=== PATIENT | female | born 1975 | race Caucasian/White ===

== ENCOUNTER 2017-05-10 14:32 | Emergency (ER) | payer OTHER ==
[~2017-05-10] VITALS: Ht 165.1 cm; Wt 110.0 kg
[2017-05-10 14:48] VITALS: TEMP 36.9; Ht 165.1 cm; Wt 110.0 kg
[2017-05-10] MEDS ORDERED: ACETAMINOPHEN 500 MG TAB PO STA (16:11)
[2017-05-10] MEDS ORDERED: BND25 PO (16:59)
[2017-05-10] MEDS ORDERED: DICL75TA2 PO (16:59)
[2017-05-10] MEDS ORDERED: PRAZ1CAP10 PO (16:59)
[2017-05-10] MEDS ORDERED: ALBU18002 INH (16:59)
[2017-05-10] MEDS ORDERED: MONT1TAB5 PO (16:59)
[2017-05-10] MEDS ORDERED: LEVO-14 PO (16:59)
[2017-05-10] MEDS ORDERED: ACET-1138 PO (16:59)
[2017-05-10] MEDS ORDERED: VENL-271 PO (16:59)
[2017-05-10] MEDS ORDERED: CRAN1CAP24 PO (16:59)
[2017-05-10] MEDS ORDERED: VALA1TAB31 PO (16:59)
[2017-05-10] MEDS ORDERED: FLUT0.15 NAE (16:59)
[2017-05-10] MEDS ORDERED: CALC-354 PO (16:59)
[2017-05-10] MEDS ORDERED: NERVE TONIC PO (16:59)
[2017-05-10] MEDS ORDERED: MECL1TAB42 PO (16:59)
[2017-05-10] MEDS ORDERED: COMPOUND TOP (16:59)
[2017-05-10] MEDS ORDERED: FERR325T5 PO (16:59)
[2017-05-10] MEDS ORDERED: POLY1POW2 PO (17:10)
[2017-05-10] MEDS ORDERED: OLOP0.1S2 OPB (17:10)
[2017-05-10] MEDS ORDERED: DOCU100C22 PO (17:10)
[2017-05-10] MEDS ORDERED: CLON0.5T3 PO (17:10)
[2017-05-10] MEDS ORDERED: LEVO150T9 PO (17:10)
[2017-05-10] MEDS ORDERED: LEVO175T3 PO (17:10)
[2017-05-10] MEDS ORDERED: ABL/5 PO (17:10)
[2017-05-10] MEDS ORDERED: MULT-589 PO (17:10)
[2017-05-10] MEDS ORDERED: MIRT30TA3 PO (17:10)
[2017-05-10] MEDS ORDERED: ONDA4TAB46 PO (17:10)
[2017-05-10] MEDS ORDERED: SUMA100T16 PO (17:10)
[2017-05-10] MEDS ORDERED: BCPILLS PO (17:10)
[2017-05-10] MEDS ORDERED: EPP3/2 IM (17:10)
--- NOTE | 2017-05-10 17:24 | DIAGNOSTIC IMAGING REPORT ---
CT HEAD WITHOUT CONTRAST (CT) CLINICAL HISTORY: Fall, headache, lip and left arm numbness COMPARISON STUDY: No previous studies for comparison. TECHNIQUE: Axial CT of the brain is performed from the vertex to the skull base. IV contrast was not administered for this examination. A dose lowering technique was utilized adhering to the principles of ALARA. CT DOSE: FINDINGS: No intra or extra-axial mass lesions are visualized. There is no CT evidence of acute cortical infarction. There is no evidence of midline shift. There is no acute hemorrhage. No calvarial fractures are visualized. There is no evidence of pathologic ventricular dilatation. There is no evidence of acute sinusitis IMPRESSION: No acute intracranial findings Electronically signed by: Dimas Levine M.D. 05/10/2017 5:22 PM Dictated Date/Time: 05/10/2017 5:21 PM
--- NOTE | 2017-05-10 17:27 | DIAGNOSTIC IMAGING REPORT ---
CT OF THE CERVICAL SPINE CLINICAL HISTORY: Fall, headache, lip and left arm numbness COMPARISON STUDY: No previous studies for comparison. CT DOSE: 1125.23 mGy.cm TECHNIQUE: CT scan of the cervical spine was performed from the skull base to the thoracic inlet. Images are reviewed in the axial, sagittal, and coronal planes. IV contrast was not administered for this examination. A dose lowering technique was utilized adhering to the principles of ALARA. FINDINGS: The visualized portions of the lung apices reveal no evidence of pneumothorax. The prevertebral soft tissues are normal. No fractures or subluxations are visualized. There is a C3 lytic focus, likely representing a hemangioma. There are multilevel degenerative changes most pronounced at C5-6 and C6-7 levels. There is left-sided foraminal narrowing at the C5-C6 level. IMPRESSION: 1. No evidence of acute fracture or traumatic subluxation 3. 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 Degenerative changes with left-sided foraminal stenosis at the C5-6 level. Electronically signed by: Dimas Levine M.D. 05/10/2017 5:26 PM Dictated Date/Time: 05/10/2017 5:23 PM
[2017-05-10] MEDS ORDERED: SODIUM CHLORIDE 0.9% 1000ML 1,000 ML IV STA (17:45)
[2017-05-10] MEDS ORDERED: DiphenhydrAMINE HCL 50 MG/ML VIAL IV STA (17:45)
[2017-05-10] MEDS ORDERED: PROCHLORPERAZINE 5 MG/ML 2 ML VIAL IV STA (17:45)
[2017-05-10] MEDS ORDERED: ALBUT/IPRATROP 3MG/0.5MG NEB 3 ML VIAL INH STA (18:08)
[2017-05-10 18:19] LABS: BASO % 0.2 %; BASO ABS # 0.03 K/uL (0-0.2); COMPLETE YES; EOS % 0.6 %; HEMATOCRIT 43.4 % (37-47); IG% 0.5 %; LYMPH % 10.3 %; LYMPH ABS # 1.66 K/uL (1.2-3.4); MEAN CELL VOLUME 92.5 fL (80-100); MEAN CORPUSCULAR HGB CONC 31.3 g/dl (32-36); MEAN PLATELET VOLUME 11.3 fL (7.4-10.4); MONO % 7.3 %; NEUT % 81.1 %; PLATELET COUNT 437 K/uL (130-400); RED BLOOD COUNT 4.69 M/uL (4.2-5.4); WHITE BLOOD COUNT 16.13 K/uL (4.8-10.8)
[2017-05-10 18:40] LABS: BUN/CREATININE RATIO 19.5 (10-20); CALCIUM 8.7 mg/dl (8.5-10.1); CREATININE 0.72 mg/dl (0.60-1.20); POTASSIUM 4.3 mmol/L (3.5-5.1)
--- NOTE | 2017-05-10 18:42 | EMERGENCY ROOM VISIT NOTE ---
ED Visit Note First contact with patient: 16:04 I have seen and examined this patient with Kiran Rick and generally agree with the treatment plan as discussed. Current/Historical Medications Scheduled Aripiprazole (Abilify), 5 MG PO DAILY Control Pills ( Control Pills), 1 TAB PO DAILY Calcium Carbonate-Cholecalcife (Caltrate 600+D), 1 TAB PO DAILY Clonazepam (Klonopin), 0.5 MG PO BID Cranberry-Vitamin C (Azo Cranbery Urinary Trac 250-60 mg), 1 CAP PO DAILY Diclofenac Sodium (Voltaren), 75 MG PO BID Ferrous Sulfate (Ferrous Sulfate), 325 MG PO DAILY Fluticasone Propionate (Nasal) (Flonase Allergy Relief), 2 SPRAYS SHAHNAZ DAILY Levothyroxine Sodium (Levothyroxine Sodium), 150 MCG PO 4XWK Levothyroxine Sodium (Levothyroxine Sodium), 175 MCG PO 3XWK Mirtazapine (Remeron), 30 MG PO HS Montelukast Sodium (Montelukast Sodium), 10 MG PO DAILY Multivitamins (Daily Dinesh), 1 TAB PO DAILY Olopatadine Hcl (Patanol 0.1% Oph), 1 DROP OPB BID Prazosin Hcl (Prazosin), 1 MG PO HS Venlafaxine Hcl (Venlafaxine Hcl Er), 37.5 MG PO DAILY [Nerve Tonic], 2 TABS PO DAILY Scheduled PRN Acetaminophen (Tylenol Extra Strength), 500 MG PO Q6H PRN for Pain or Fever Albuterol Sulfate (Proair Respiclick), 2 PUFFS INH Q4H PRN for SOB/Wheezing Diphenhydramine Hcl (Benadryl), 25 MG PO Q6H PRN for Allergy Symptoms Docusate Sodium (Docqlace), 200 MG PO BID PRN for Constipation Epinephrine (Epipen), 0.3 MG IM UD PRN for ALLERGIC REACTION Levocetirizine Dihydrochloride (Levocetirizine Dihydrochl), 5 MG PO DAILY PRN for Allergy Symptoms Meclizine Hcl (Meclizine Hcl), 25 MG PO TID PRN for Dizziness or Vertigo Ondansetron Hcl (Zofran), 4 MG PO Q8 PRN for Nausea Polyethylene Glycol 3350 (Bulk (Polyethylene Glycol 3350), 17 GM PO DAILY PRN for Constipation Sumatriptan Succinate (Imitrex), 100 MG PO UD PRN for Migraine Valacyclovir Hcl (Valtrex), 2 GM PO BID PRN for Cold Sore(s) [Compound Lotion], 1 APPLN TOP UD PRN for Pain Allergies Coded Allergies: Amoxicillin (Verified Allergy, Intermediate, Tightness of chest, 05/10/17) Clavulanic Acid (Verified Allergy, Intermediate, Tightness of chest, ) Fexofenadine (Verified Allergy, Intermediate, Emesis, 05/10/17) Iodinated Diagnostic Agents (Verified Allergy, Intermediate, Itchiness, ) Niacin (Verified Allergy, Intermediate, Flushing, 05/10/17) Povidone Iodine (Verified Allergy, Intermediate, Tightness of chest, ) Biotin (Verified Allergy, Unknown, Unknown, 05/10/17) Cat Dander (Verified Allergy, Unknown, Unknown, 05/10/17) Dust (Verified Allergy, Unknown, Unknown, 05/10/17) Eggs or Egg-derived Products (Verified Allergy, Unknown, Unknown, 05/10/17) Grass (Verified Allergy, Unknown, Unknown, 05/10/17) POLLEN (Verified Allergy, Unknown, Unknown, 05/10/17) Shrimp (Verified Allergy, Unknown, Unknown, 05/10/17) Uncoded Allergies: MOLD (Allergy, Unknown, Unknown, 05/10/17) Vital Signs Date Time Temp Pulse Resp B/P (MAP) Pulse Ox O2 Delivery O2 Flow Rate FiO2 05/10/17 18:23 74 18 93/79 95 Room Air 05/10/17 16:27 96 18 127/113 95 Room Air 05/10/17 14:48 36.9 95 18 104/75 94 Room Air Laboratory Results 05/10/17 18:10 Red Blood Count 4.69, Mean Corpuscular Volume 92.5, Mean Corpuscular Hemoglobin 29.0, Mean Corpuscular Hemoglobin Concent 31.3, Mean Platelet Volume 11.3, Neutrophils (%) (Auto) 81.1, Lymphocytes (%) (Auto) 10.3, Monocytes (%) (Auto) 7.3, Eosinophils (%) (Auto) 0.6, Basophils (%) (Auto) 0.2, Neutrophils # (Auto) 13.09, Lymphocytes # (Auto) 1.66, Monocytes # (Auto) 1.18, Eosinophils # (Auto) 0.09, Basophils # (Auto) 0.03 05/10/17 18:10 Test 05/10/17 18:10 White Blood Count 16.13 K/uL (4.8-10.8) Red Blood Count 4.69 M/uL (4.2-5.4) Hemoglobin 13.6 g/dL (12.0-16.0) Hematocrit 43.4 % (37-47) Mean Corpuscular Volume 92.5 fL (80-100) Mean Corpuscular Hemoglobin 29.0 pg (25-34) Mean Corpuscular Hemoglobin Concent 31.3 g/dl (32-36) Platelet Count 437 K/uL (130-400) Mean Platelet Volume 11.3 fL (7.4-10.4) Neutrophils (%) (Auto) 81.1 % Lymphocytes (%) (Auto) 10.3 % Monocytes (%) (Auto) 7.3 % Eosinophils (%) (Auto) 0.6 % Basophils (%) (Auto) 0.2 % Neutrophils # (Auto) 13.09 K/uL (1.4-6.5) Lymphocytes # (Auto) 1.66 K/uL (1.2-3.4) Monocytes # (Auto) 1.18 K/uL (0.11-0.59) Eosinophils # (Auto) 0.09 K/uL (0-0.5) Basophils # (Auto) 0.03 K/uL (0-0.2) RDW Standard Deviation 48.6 fL (36.4-46.3) RDW Coefficient of Variation 14.5 % (11.5-14.5) Immature Granulocyte % (Auto) 0.5 % Immature Granulocyte # (Auto) 0.08 K/uL (0.00-0.02) Anion Gap 6.0 mmol/L (3-11) Est Creatinine Clear Calc Drug Dose 123.1 ml/min Estimated GFR () 118.0 Estimated GFR (Non- 101.9 BUN/Creatinine Ratio 19.5 (10-20) Calcium Level 8.7 mg/dl (8.5-10.1) Medications Administered Medications (Trade) Dose Ordered Sig/Alejandrina Route Start Time Stop Time Status Last Admin Dose Admin Acetaminophen (Tylenol Tab) 500 mg NOW STAT PO 05/10/17 16:11 05/10/17 16:12 DC 05/10/17 16:26 500 MG Prochlorperazine Edisylate (Compazine Inj) 10 mg NOW STAT IV 05/10/17 17:45 05/10/17 17:48 DC 05/10/17 18:21 10 MG Diphenhydramine HCl (Benadryl Inj) 50 mg NOW STAT IV 05/10/17 17:45 05/10/17 17:48 DC 05/10/17 18:21 50 MG Sodium Chloride 1,000 ml @ 999 mls/hr Q1H1M STAT IV 05/10/17 17:45 05/10/17 18:45 05/10/17 18:21 999 MLS/HR Albuterol/ Ipratropium (Duoneb) 3 ml NOW STAT INH 05/10/17 18:08 05/10/17 18:09 DC 05/10/17 18:21 3 ML Departure Information Referrals Coliln Johnson D.O. (PCP) Patient Instructions My [facility]
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
[2017-05-10 20:08] VITALS: BP 117/81; PULSE 68; O2SAT 97
== END 2017-05-10 20:09 | disposition home or self-care (01) ==
LOC: C.EDB 14:36 → C.EDD 20:09
DX: R51 Headache (principal)